=== PATIENT | male | born 1990 | race Caucasian/White ===

== ENCOUNTER 2024-03-07 23:03 | Emergency (ER) | payer OTHER ==
[~2024-03-07] VITALS: Ht 172.7 cm; Wt 74.4 kg
[2024-03-08] MEDS ORDERED: Acetaminophen/Hydrocodone 5 MG/325 MG TABLET PO ONE (00:10)
[2024-03-08] MEDS ORDERED: Albuterol Sulf/Ipratropium 3 ML VIAL NEB ONE (00:10)
[2024-03-08] MEDS ORDERED: Ondansetron Hydrochloride 4 MG TAB SL ONE (00:10)
[2024-03-08] MEDS ORDERED: HYDROCODONE-AC1 EAC1 PO (00:43)
== END 2024-03-08 01:03 | disposition home or self-care (01) ==
LOC: ED 23:03
DX: S22.41XA Multiple fractures of ribs, right side, initial encounter for closed fracture (principal); J45.909 Unspecified asthma, uncomplicated; V19.9XXA Pedal cyclist (driver) (passenger) injured in unspecified traffic accident, initial encounter; Y93.89 Activity, other specified; Y92.410 Unspecified street and highway as the place of occurrence of the external cause; Y99.8 Other external cause status